=== PATIENT | male | born 1990 | race African-American/Black ===

== ENCOUNTER 2017-03-25 22:24 | Emergency (ER) | payer OTHER ==
[~2017-03-25] VITALS: Ht 190.5 cm; Wt 82.5 kg
[~2017-03-25 22:24] MED LIST: ALBUTEROL SULF8.5 GM IH; ANAPROX DS550 M1 PO; AUGMENTIN875 MG PO; DICLOFENAC SODI75 MG PO; FLEXERIL10 MG PO; KEFLEX500 MG PO; MOBIC7.5 MG PO; NAPROSYN500 MG PO; NO HOME MEDS; PREDNISONE20 MG PO; ROBITUSSIN AC,T10 ML PO; ZOFRAN ODT4 MG PO
[2017-03-26] MEDS ORDERED: MEDROL DOSEPAK4 MG PO (00:04)
[2017-03-26 00:23] VITALS: BP 134/68
== END 2017-03-26 00:24 | disposition home or self-care (01) ==
LOC: EME 22:24
DX: L50.0 Allergic urticaria (principal); F17.200 Nicotine dependence, unspecified, uncomplicated
CPT/HCPCS: 99281; 99285; J1200; J2930; J7030; S0028

== ENCOUNTER 2017-12-16 09:56 | Emergency (ER) | payer SELFPAY ==
[~2017-12-16] VITALS: Ht 190.5 cm; Wt 82.7 kg
[~2017-12-16 09:56] MED LIST changes: +MEDROL DOSEPAK4 MG PO
[2017-12-16 11:30] VITALS: BP 134/78
== END 2017-12-16 11:40 | disposition home or self-care (01) ==
LOC: EME 09:56
DX: S61.212A Laceration without foreign body of right middle finger without damage to nail, initial encounter (principal); W26.0XXA Contact with knife, initial encounter; Z23 Encounter for immunization; F17.200 Nicotine dependence, unspecified, uncomplicated; Z71.6 Tobacco abuse counseling
CPT/HCPCS: 73140; 99281; 99284